=== PATIENT | female | born 1965 | race Caucasian/White ===

== ENCOUNTER 2022-12-10 16:37 | Emergency (ER) | payer OTHER ==
[2022-12-10] MEDS: Diphtheria,Pertussis(Acell),Tetanus Vaccine 0.5 ML Syringe IM ONE (16:37)
[2022-12-10] MEDS: ceFAZolin 1 GM Vial IVPUSH ONE (16:41)
[2022-12-10] MEDS: HYDROmorphone 1 MG/ML Syringe IVPUSH ONE (16:43)
[2022-12-10] MEDS: Ondansetron 4 MG/2 ML SDV IVPUSH ONE ×2 (16:45→17:05)
[2022-12-10] MEDS ORDERED: Diphtheria,Pertussis(Acell),Tetanus Vaccine 0.5 ML Syringe IM ONE (19:37)
== END 2022-12-10 17:07 ==
LOC: KA.ED 16:37
DX: S53.105A Unspecified dislocation of left ulnohumeral joint, initial encounter (principal); E03.9 Hypothyroidism, unspecified; E66.9 Obesity, unspecified; Z68.29 Body mass index [BMI] 29.0-29.9, adult; Z23 Encounter for immunization; Z79.899 Other long term (current) drug therapy; V49.49XA Driver injured in collision with other motor vehicles in traffic accident, initial encounter; Y92.410 Unspecified street and highway as the place of occurrence of the external cause
CPT/HCPCS: 73070-LT; 90471; 90715; 96374; 96375; 99284; 99285-25; J0690; J1170; J2405